=== PATIENT | male | born 1975 | race Caucasian/White ===

== ENCOUNTER 2017-07-30 12:43 | Inpatient (IN) | payer BC, OTHER ==
[~2017-07-30] VITALS: Ht 188 cm; Wt 103.4 kg
[2017-07-31] MEDS ORDERED: MAGNESIUM HYDROXIDE 30 ML LIQUID UDC PO PRN (00:45)
[2017-07-31] MEDS ORDERED: ONDANSETRON ODT 4 MG TAB.RAPDIS SL PRN (00:45)
[2017-07-31] MEDS ORDERED: METHOCARBAMOL 750 MG TABLET PO PRN (00:45)
[2017-07-31] MEDS ORDERED: DICYCLOMINE HCL 20 MG TABLET PO PRN (00:45)
[2017-07-31] MEDS ORDERED: LORAZEPAM 1 MG TABLET PO PRN (00:45)
[2017-07-31] MEDS ORDERED: HYDROXYZINE PAMOATE 25 MG CAPSULE PO PRN (00:45)
[2017-07-31] MEDS ORDERED: diphenhydrAMINE 50 MG CAPSULE PO PRN (00:45)
[2017-07-31] MEDS ORDERED: MIRALAX 17 GM POWD.PACK PO PRN (00:45)
[2017-07-31] MEDS ORDERED: BUPRENORPHINE HCL 2 MG TAB.SUBL SL PRN (00:45)
[2017-07-31] MEDS ORDERED: LOPERAMIDE HCL 2 MG CAPSULE PO PRN ×2 (00:45)
[2017-07-31] MEDS ORDERED: CLONIDINE HCL 0.1 MG TABLET PO PRN (00:45)
[2017-07-31] MEDS ORDERED: ACETAMINOPHEN 325 MG TABLET PO PRN (00:45)
[2017-07-31] MEDS ORDERED: LORAZEPAM 2 MG/1 ML VIAL IM PRN (00:45)
[2017-07-31] MEDS ORDERED: ONDANSETRON 4 MG/2 ML VIAL IM PRN (00:45)
[2017-07-31] MEDS ORDERED: THIAMINE HCL 200 MG/2 ML VIAL IM ONE (00:45)
[2017-07-31] MEDS ORDERED: MAG HYDROX/AL HYDROX/SIMETH 30 ML LIQUID UDC PO PRN (00:45)
--- NOTE | 2017-07-31 01:05 | NUR ---
INTAKE ASSESSMENT BP: 153/87, HR: 90, RR: 18, SpO2: 98% T: 98, Pt denies pain at this time Pt is in stable condition and able to be admitted on the unit. Unit protocols regarding home medications and vital signs every four hours were explained. Pt verbalized understanding. Will continue admission upon arrival on the unit.
--- NOTE | 2017-07-31 01:30 | NUR ---
ADMISSION NOTE COWS:3, CIWA:5 [facility] accompanied by a SUPERVISOR OF COMMUNICATIONS at 0112. Pt is a 42 year old male admitted on 07/31/17 for ETOH and Opiate dependency. Pt is full code with NKA. He reports a PMHx of anxiety, depression, HTN and surgery of bilateral thumbs every 2 years. Last surgery was in May 2017. Pt reports having a PCP by the name of Dr. Marie. He brought in several home medications which have all been reconciled. He denies a history of seizures. He reports his last sobriety was for 40 days 2 years ago. Pt verbalizes that he is here for ETOH and Percocet withdrawal. He describes his current use as: 1.ETOH pint lager daily for 2 years Last dose: 1 beer at 10 pm on 07/30/17 2.Percocet PO 10/325mg 2 tabs every 4-6 hours as prescribed Last dose: 07/30/17 three tabs. He describes his withdrawal symptoms as: "body aches, dizziness, sweats" Upon assessment, pt is alert and oriented x4, anxious, agitated, restless and cooperative. Speech is clear and audible. Heart rate regular. Pt denies chest pain or SOB. PERRLA, breathing even and unlabored. Lung sounds clear. Abdomen is soft and non-distended, bowel sounds present. Last BM (07/30/17 ). Pt reports that BM is regular. Pt's skin is warm, dry and intact. MD aware of pt's admission. Pt oriented to room and unit. Pt safe with bed locked in lowest position, side rails up x2 and call light within reach. Will monitor.
[2017-07-31] MEDS: LORAZEPAM 1 MG TABLET PO PRN ×2 (01:42→08:54)
--- NOTE | 2017-07-31 01:42 | NUR ---
PRN ATIVAN/MAALOX Pt complains of anxiety and agitation. CIWA:5. Pt complains of heart burn. PRN Ativan 1mg and Maalox administered as ordered. Will monitor effectiveness.
[2017-07-31] MEDS ORDERED: MAG HYDROX/AL HYDROX/SIMETH 30 ML LIQUID UDC ONE (01:52)
[2017-07-31] MEDS ORDERED: CETI1TAB PO (01:53)
[2017-07-31] MEDS ORDERED: BUPR150T10 PO (01:53)
[2017-07-31] MEDS ORDERED: BUDE8.43 NS (01:53)
[2017-07-31] MEDS ORDERED: LORAZEPAM 1 MG TABLET ONE (01:53)
[2017-07-31] MEDS ORDERED: LORA10TA7 PO (01:53)
[2017-07-31] MEDS ORDERED: TADA5TAB2 PO (01:53)
[2017-07-31] MEDS ORDERED: CALC-494 PO (01:53)
[2017-07-31] MEDS ORDERED: MECL-102 PO (01:53)
[2017-07-31] MEDS ORDERED: SERT100T PO (01:53)
[2017-07-31] MEDS ORDERED: DERMABOND TP (01:53)
[2017-07-31] MEDS ORDERED: [UNRECOGNIZED DRUG - OTHER] TP (01:53)
[2017-07-31] MEDS ORDERED: IBUP100O18 PO (01:53)
[2017-07-31] MEDS ORDERED: RANI150T12 PO (01:53)
[2017-07-31] MEDS ORDERED: MV-M1TAB21 PO (01:53)
[2017-07-31] MEDS ORDERED: OXYM-46 NS (01:53)
[2017-07-31] MEDS ORDERED: OXYM15MI4 NS (01:53)
[2017-07-31 02:02] LABS: BASOPHILS # (AUTO) 0.1 K/uL (0.0-8.0); BASOPHILS % (AUTO) 1.2 % (0.0-2.0); EOSINOPHILS # (AUTO) 0.3 K/uL (0.0-0.7); EOSINOPHILS % (AUTO) 3.4 % (0.0-7.0); HEMATOCRIT 37.1 % (40-50); HEMOGLOBIN 12.3 G/DL (14.0-18.0); LYMPHOCYTES # (AUTO) 3.3 K/UL (0.8-4.8); LYMPHOCYTES % (AUTO) 34.4 % (20.5-51.5); MEAN CORPUSCULAR HGB CONC 33 g/dL (32.0-37.0); MEAN CORPUSCULAR VOLUME 81.4 FL (82.0-92.0); MONOCYTES % (AUTO) 10.7 % (0.0-11.0); NEUTROPHILS # (AUTO) 4.8 K/UL (1.8-8.9); NEUTROPHILS % (AUTO) 50.3 % (38.5-71.5); PLATELET COUNT (AUTO) 444 K/UL (150-450); RED BLOOD CELL COUNT(AUTO) 4.56 MIL/UL (4.7-6.1); WHITE BLOOD COUNT (AUTO) 9.5 K/UL (4.0-11.2)
--- NOTE | 2017-07-31 02:42 | NUR ---
PRN ATIVAN/MAALOX REASSESSMENT PRN medications effective. Pt lying in bed with eyes closed noted to be asleep. Respirations 16, breathing even and unlabored. Safety measures in place. Will monitor.
[2017-07-31 04:20] VITALS: BP 148/101
[2017-07-31] MEDS ORDERED: CLONIDINE HCL 0.1 MG TABLET ONE (06:04)
--- NOTE | 2017-07-31 06:05 | NUR ---
PRN CLONIDINE Pt with increased BP 148/101, HR:86. PRN Clonidine administered as ordered. Will monitor effectiveness.
[2017-07-31 07:05] VITALS: BP 138/88
--- NOTE | 2017-07-31 07:05 | NUR ---
PRN CLONIDINE REASSESSMENT PRN medication effective. BP: 138/88. Will endorse.
--- NOTE | 2017-07-31 07:23 | NUR ---
END OF SHIFT Pt is a 42 year old male admitted on 07/31/17 for ETOH and Opiate dependency. Pt is full code with NKA. He reports a PMHx of anxiety, depression, HTN and surgery of bilateral thumbs every 2 years. Last surgery was in May 2017. He received PRN Ativan and Maalox. At 0605 he received PRN Clonidine for increased BP. He slept a total of 5 hrs, Intake: 500 mL, Void: x1, BM:0, COWS;3, CIWA:5. Pt remains alert and oriented x4, breathing is even and unlabored. Safety measures in place. Endorsed to oncoming shift.
[2017-07-31 07:39] LABS: *AMPHETAMINE, URINE NEGATIVE (NEGATIVE); *BARBITURATE, URINE NEGATIVE (NEGATIVE); *CANNABINOID, URINE NEGATIVE (NEGATIVE); *COCCAINE, URINE NEGATIVE (NEGATIVE); *OPIATE, URINE POSITIVE (NEGATIVE); *PHENCYCLIDINE SCREEN,URINE NEGATIVE (NEGATIVE)
[2017-07-31 07:41] LABS: THYROID STIMULATING HORMONE 1.396 mIU/mL (0.358-3.740)
[2017-07-31 07:42] LABS: BILIRUBIN,TOTAL 0.5 mg/dL (0.2-1.0); CREATININE 1.3 mg/dL (0.6-1.3); POTASSIUM 3.7 mmol/L (3.5-5.1)
--- NOTE | 2017-07-31 07:58 | NUR ---
START OF SHIFT Pt 42 y/o male admitted for etoh opiates. Pt received in room on bed with eyes closed resting, but easily arousable to name. Pt alert and oriented to name, place, and time. Perrla. Skin warm and slightly moist to touch. Respirations even and unlabored. It was reported that pt slept for 5 hours last night. Bed on lowest position with side rails x 2 up for safety. Call light within reach. No distress noted at this time.
[2017-07-31 08:00] VITALS: BP 141/90
[2017-07-31] MEDS: FOLIC ACID 1 MG TABLET PO SCH (08:53)
[2017-07-31] MEDS: MULTIVITAMINS,THERAPEUTIC TABLET PO SCH (08:53)
[2017-07-31] MEDS: IBUPROFEN 400 MG TABLET PO PRN (08:54)
[2017-07-31] MEDS: THIAMINE HCL 100 MG TABLET PO SCH (08:54)
--- NOTE | 2017-07-31 08:58 | NUR ---
PRN pt with ciwa=8. Anxious and states feels agitated. Ativan 1mg po prn per MD order given and tolerated well.
--- NOTE | 2017-07-31 08:59 | NUR ---
PRN Pt states has muscle aches 6/10 generalized. Robaxin po prn per MD order given and tolerated well.
--- NOTE | 2017-07-31 09:00 | NUR ---
PRN CARLENE Pt observed in room on bed. No distress noted at this time. Pt states pain of bilateral thumbs 2/10, and body aches 2/10.
--- NOTE | 2017-07-31 09:00 | NUR ---
PRN Pt states has bilateral thumb pain 4/1. Motrin po prn per MD order given and tolerated well.
--- NOTE | 2017-07-31 09:58 | NUR ---
PRN EVAL ciwa=4. Pt observed in room on bed. No distress noted at this time.
[2017-07-31] MEDS: LORAZEPAM 1 MG TABLET PO SCH ×3 (12:49→20:46)
[2017-07-31 13:13] VITALS: BP 139/89
[2017-07-31] MEDS: SERTRALINE HCL 100 MG TABLET PO SCH (13:33)
[2017-07-31] MEDS: buPROPion SR 150 MG TABLET.SA PO SCH (13:33)
[2017-07-31 17:27] VITALS: BP 135/85
--- NOTE | 2017-07-31 18:07 | NUR ---
END OF SHIFT Pt 42 y/o male admitted for etoh and opiate. Pt alert and oriented to name, place, and time. Perrla. Skin warm and slightly moist to touch. Respirations even and unlabored. Bilateral hand tremors noted. Pt with periods of anxiety this morning. Pt observed mostly in room throughout the day. Pt was seen by MD today. Pt medication compliant and tolerated well. No ASE noted. Bed on lowest position with side rails x2 up for safety. Call light within reach. No distress noted at this time.
--- NOTE | 2017-07-31 19:15 | NUR ---
Start of Shift Patient is in bed sleeping but is easily aroused to verbal stimuli. Breathing even and non labored. Patient is a 42 year old female admitted on 07/31/17 for Opiate and ETOH Dependence under the care of Dr. Cowan and is currently receiving a 5 day Ativan and 4 day Subutex taper. Patient verbalizes no known allergies, wishes to be full code, following a regular diet, placed on fall and seizure precautions, skin noted intact. Patients past medical history noted as HTN, Anxiety, Depression, and bilateral thumb surgery. Per endorsement, patient was given PRN Ativan prior to starting Ativan taper. All needs attended to promptly. Will endorse to continue plan of care as ordered.
[2017-07-31 20:44] VITALS: BP 150/91
[2017-07-31] MEDS ORDERED: PATIENT MAY USE OWN MED- MD OK PO SCH (21:00)
[2017-08-01 00:20] VITALS: BP 138/84
[2017-08-01 04:15] VITALS: BP 142/89
--- NOTE | 2017-08-01 07:11 | NUR ---
End of Shift Patient is in bed, awake, alert and verbally responsive. Breathing even and non labored. Patient is a 42 year old female admitted on 07/31/17 for Opiate and ETOH Dependence under the care of Dr. Cowan and is currently receiving a 5 day Ativan and will start a 4 day Subutex taper today 08/01/17. No known allergies, Full Code, Regular Diet, placed on fall and seizure precautions, skin noted intact. Patients past medical history noted as HTN, Anxiety, Depression, and bilateral thumb surgery. No PRN Medications administered. Last noted COWS 6 and CIWA 6. All needs attended to promptly. Will endorse to continue plan of care as ordered.
--- NOTE | 2017-08-01 07:40 | NUR ---
START OF SHIFT NOTE 42 year old male admitted on 07/31/17 for Opiate and ETOH Dependence. ON 5 day Ativan and 4 day Subutex taper beginning 08/01/17. No known allergies, Full Code, Regular Diet, placed on fall and seizure precautions. Patients past medical history noted as HTN, Anxiety, Depression, and bilateral thumb surgery. Alert and oriented. No observable sign of withdrawl such as tremors, diaphoresis, chills, confusion, bone/joint/muscle pain. Denies any complaints at this time other than stating left thumb soreness due to thumb surgery 05/2017. Bed in low position, call light in reach, safety measures observed. Will continue to monitor.
[2017-08-01 08:00] VITALS: BP 153/99
[2017-08-01] MEDS ORDERED: TUBERCULIN,PURIF.PROT.DERIV. 5 TU/0.1 ML TEST ID ONE (09:00)
[2017-08-01] MEDS: LISINOPRIL 10 MG TABLET PO SCH (10:00)
[2017-08-01] MEDS: LORAZEPAM 1 MG TABLET PO SCH ×2 (10:09→13:00)
[2017-08-01] MEDS: MULTIVITAMINS,THERAPEUTIC TABLET PO SCH (10:09)
[2017-08-01] MEDS: FOLIC ACID 1 MG TABLET PO SCH (10:09)
[2017-08-01] MEDS: THIAMINE HCL 100 MG TABLET PO SCH (10:10)
[2017-08-01] MEDS: ZANTAC 150MG PO SCH (10:10)
[2017-08-01] MEDS: SERTRALINE HCL 100 MG TABLET PO SCH (10:10)
[2017-08-01] MEDS: BUPRENORPHINE HCL 2 MG TAB.SUBL SL SCH ×2 (10:14→15:14)
[2017-08-01] MEDS: buPROPion SR 150 MG TABLET.SA PO SCH (10:17)
[2017-08-01 11:08] LABS: HEPATITIS B SURFACE AG Negative (Negative)
[2017-08-01 12:00] VITALS: BP 138/93
[2017-08-01 16:30] VITALS: BP 137/89
--- NOTE | 2017-08-01 19:09 | NUR ---
END OF SHIFT REPORT 42 year old male admitted on 07/31/17 for Opiate and ETOH Dependence. MD changed Ativan to 4 day taper and Subutex to 3 day taper. Tapers began 08/01/17. No known allergies, Full Code, Regular Diet, on fall and seizure precautions. Past medical history of HTN, Anxiety, Depression, and bilateral thumb surgery. Tolerating ativan and Subutex tapers as evidenced by the following scores: 0800 COWS/CIWA 6/8, 1200 COWS/CIWA 5/6, 1600 COWS/CIWA 3/6. Appetite fair to good with 50 percent intake at breakfast and lunch and 100 percent at dinner. Intake 2475 cc, void 5, stool x 2. Bed in low position, call light in reach, safety measures observed. Report given to night RN.
[2017-08-01 20:00] VITALS: BP 137/89
--- NOTE | 2017-08-01 20:00 | NUR ---
START OF SHIFT PATIENT WAS JUST IN GROUP. PATIENT ALERT AND ORIENTED X 4. PATIENT REPORTS ANXIETY, SWEATING, NOTED FLUSHED, DENIES ANY PAIN. NO N/V. RECEIVED REPORT FROM DAY SHIFT NURSE. PATIENT IS A 42 YEAR OLD MALE ADMITTED FOR ETOH /OPIATE DEPENDENCE. PATIENT IS ON 4 DAY ATIVAN AND 3 DAY SUBUTEX TAPER. PATIENT IS COMPLIANT WITH MEDICATION AND TREATMENT PLAN. PATIENT DID NOT REQUIRE ANY PRN MEDICATION. LAST COWS 3 AND CIWA 6. SKIN INTACT. PATIENT IS ON FALL/SEIZURE PRECAUTION. SAFETY MEASURES IN PLACE. CALL LIGHT IN REACH. WILL CONTINUE TO MONITOR
[2017-08-01] MEDS ORDERED: LORAZEPAM 1 MG TABLET PO SCH (21:00)
[2017-08-01] MEDS ORDERED: BUPRENORPHINE HCL 2 MG TAB.SUBL SL SCH (21:00)
[2017-08-02] VITALS: BP 109/76
[2017-08-02 04:00] VITALS: BP 127/76
--- NOTE | 2017-08-02 07:07 | NUR ---
END OF SHIFT NOTE PATIENT CONTINUE ON 4 DAY ATIVAN AND 3 DAY SUBUTEX TAPER, TOLERATED WELL, NO ADVERSE REACTION. PATIENT IS COMPLIANT WITH MEDICATION AND TREATMENT PLAN. PATIENT DID NOT REQUIRE ANY PRN MEDICATION. SKIN INTACT. PATIENT IS ON FALL/SEIZURE PRECAUTION. SAFETY MEASURES IN PLACE. CALL LIGHT IN REACH. WILL CONTINUE TO MONITOR. SLEPT 7 HOURS. FLUID INTAKE 2,100 ML. VOIDED X 4. NO BM. LAST COWS 2 AND CIWA 1 .
[2017-08-02 08:00] VITALS: BP 116/84
--- NOTE | 2017-08-02 08:00 | NUR ---
START OF SHIFT NOTE 42 year old male admitted on 07/31/17 for Opiate and ETOH Dependence. ON 4 day Ativan taper on 07/31/17, and 3 day Subutex taper beginning 08/01/17. No known allergies, Full Code, Regular Diet, placed on fall and seizure precautions. Patients past medical history noted as HTN, Anxiety, Depression, and bilateral thumb surgery. Report received from night RN. Pt alert and oriented. No tremors or diaphoresis noted. Denies any complaints at this time. Bed in low position, call light in reach, safety measures observed. Will continue to monitor.
[2017-08-02] MEDS ORDERED: BUPRENORPHINE HCL 2 MG TAB.SUBL SL SCH ×2 (09:00→15:00)
[2017-08-02] MEDS ORDERED: LORAZEPAM 1 MG TABLET PO SCH (09:00)
[2017-08-02] MEDS: buPROPion SR 150 MG TABLET.SA PO SCH (09:49)
[2017-08-02] MEDS: THIAMINE HCL 100 MG TABLET PO SCH (09:49)
[2017-08-02] MEDS: ZANTAC 150MG PO SCH (09:49)
[2017-08-02] MEDS: SERTRALINE HCL 100 MG TABLET PO SCH (09:49)
[2017-08-02] MEDS: LORAZEPAM 1 MG TABLET PO SCH ×2 (09:49→20:24)
[2017-08-02] MEDS: MULTIVITAMINS,THERAPEUTIC TABLET PO SCH (09:50)
[2017-08-02] MEDS: FOLIC ACID 1 MG TABLET PO SCH (09:50)
[2017-08-02] MEDS: LISINOPRIL 10 MG TABLET PO SCH (09:50)
[2017-08-02] MEDS: BUPRENORPHINE HCL 2 MG TAB.SUBL SL SCH ×3 (09:52→20:26)
[2017-08-02 12:00] VITALS: BP 135/88
--- NOTE | 2017-08-02 13:03 | NUR ---
Therapist prompted client about group times. Client stated he will attend all groups.
[2017-08-02 16:00] VITALS: BP 109/77
--- NOTE | 2017-08-02 19:15 | NUR ---
END OF SHIFT NOTE 42 year old male admitted on 07/31/17 for Opiate and ETOH Dependence. ON 4 day Ativan taper on 07/31/17, and 3 day Subutex taper beginning 08/01/17. No known allergies, Full Code, Regular Diet, placed on fall and seizure precautions. Patients past medical history noted as HTN, Anxiety, Depression, and bilateral thumb surgery. Tolerating Ativan and Subutex taper as evidenced by the following COWS/CIWA scores. 0800, COWS 9, CIWA 10. 1200, COWS 3, CIWA 9. 1600, COWS 2, CIWA 2. No PRN medication required this shift. Bed in low position, call light in reach, safety measures observed. Report given to night RN.
[2017-08-02 20:00] VITALS: BP 122/77
--- NOTE | 2017-08-02 20:00 | NUR ---
START OF SHIFT NOTE RECEIVED REPORT FROM DAY SHIFT NURSE. PATIENT IS A 42 YEAR OLD MALE ADMITTED FOR ETOH/OPIATE DEPENDENCE. PATIENT IS ON 4 DAY ATIVAN AND 3 DAY SUBUTEX TAPER. PATIENT GOES TO GROUPS. COMPLIANT WITH MEDS AND TREATMENT PLAN. PATIENT DID NOT REQUIRE ANY PRN MEDICATION. LAST COWS 2 AND CIWA 2. PATIENT IN HIS ROOM. ALERT AND ORIENTED X 4. RESPIRATION EVEN AND UNLABORED. PATIENT REPORTS ANXIETY, FLUSHING , NO N/V/D, AND LEFT THUMB PAIN. PATIENT STATES THAT HE ATTENDED GROUPS, APPETITE [employer] AND HAD BOWEL MOVEMENT. ON FALL/SEIZURE PRECAUTION. SAFETY MEASURES IN PLACE. CALL LIGHT IN REACH. WILL CONTINUE TO MONITOR.
[2017-08-02] MEDS: IBUPROFEN 400 MG TABLET PO PRN (20:36)
--- NOTE | 2017-08-02 23:06 | NUR ---
PRN TRAZADONE ADMINISTRATION PATIENT REQUESTS FOR SLEEP AID. PRN TRAZADONE GIVEN. WILL MONITOR FOR EFFECTIVENESS Addendum: 08/03/17 at 0342 by ANDERSON IRVING LVN ERROR: THIS CHARTING IS FOR ANOTHER PATIENT
--- NOTE | 2017-08-03 | NUR ---
COWS/CIWA /VS PATIENT REFUSED VS. RESPIRATION EVEN AND UNLABORED. RR 14. SAFETY MEASURES IN PLACE. CALL LIGHT IN REACH. WILL CONTINUE TO MONITOR
--- NOTE | 2017-08-03 04:00 | NUR ---
COWS/CIWA /VS PATIENT REFUSED VS. RESPIRATION EVEN AND UNLABORED. RR 15. SAFETY MEASURES IN PLACE. CALL LIGHT IN REACH. WILL CONTINUE TO MONITOR
--- NOTE | 2017-08-03 07:13 | NUR ---
END OF SHIFT NOTE PATIENT IS A 42 YEAR OLD MALE ADMITTED FOR ETOH/OPIATE DEPENDENCE. PATIENT IS ON 4 DAY ATIVAN AND 3 DAY SUBUTEX TAPER, TOLERATED WELL. PATIENT GOES TO GROUPS. COMPLIANT WITH MEDS AND TREATMENT PLAN. PATIENT REPORTED ANXIETY, FLUSHING , NO N/V/D, AND LEFT THUMB PAIN. PATIENT STATES THAT HE ATTENDED GROUPS, APETITE GOOD AND HAD BOWEL MOVEMENT. PATIENT DID NOT REQUIRE ANY PRN MEDICATION. PATIENT REMAIN FREE OF INJURY. ON FALL/SEIZURE PRECAUTION. SAFETY MEASURES IN PLACE. CALL LIGHT IN REACH. WILL CONTINUE TO MONITOR. SLEPT 7 HOURS. FLUID INTAKE 473 ML. VOIDED X 2. NO BM. LAST COWS 5 AND CIWA 3.
--- NOTE | 2017-08-03 07:35 | NUR ---
START OF SHIFT Pt is a 42 yr old male, AA&Ox4. Pt was admitted on 07/31/17 for ETOH/Opiate dependence and is on Ativan and Subutex taper as ordered. Medication deon well. Received report from night auditor nurse. Pt slept for 7 hrs. No PRN's were given during the night. Last COWS score was 5 and CIWA score was 3 and 2000. Pt is c/o anxiety this morning but is able to cope with anxiety level. Skin is intact, warm and dry to touch. No tremors seen or felt. Pt denies any n/v. Safety precautions observed. Call light is within reach. Will continue to monitor.
[2017-08-03 08:00] VITALS: BP 132/73
[2017-08-03] MEDS ORDERED: LORAZEPAM 1 MG TABLET PO SCH ×2 (09:00)
[2017-08-03] MEDS ORDERED: SERTRALINE HCL 100 MG TABLET PO SCH (09:00)
[2017-08-03] MEDS ORDERED: BUPRENORPHINE HCL 2 MG TAB.SUBL SL SCH ×2 (09:00)
[2017-08-03] MEDS ORDERED: buPROPion SR 150 MG TABLET.SA PO SCH (09:00)
[2017-08-03] MEDS: FOLIC ACID 1 MG TABLET PO SCH (09:11)
[2017-08-03] MEDS: SERTRALINE HCL 50 MG TABLET PO SCH (09:12)
[2017-08-03] MEDS: buPROPion XL 150 MG TAB.SR.24H PO SCH (09:12)
[2017-08-03] MEDS: LISINOPRIL 10 MG TABLET PO SCH (09:12)
[2017-08-03] MEDS: THIAMINE HCL 100 MG TABLET PO SCH (09:12)
[2017-08-03] MEDS: MULTIVITAMINS,THERAPEUTIC TABLET PO SCH (09:12)
[2017-08-03] MEDS: ZANTAC 150MG PO SCH (09:18)
[2017-08-03] MEDS ORDERED: IBUP-1953 PO (11:19)
[2017-08-03] MEDS ORDERED: BUPR-96 PO (11:19)
[2017-08-03] MEDS ORDERED: DIPH50CA37 PO (11:19)
[2017-08-03] MEDS ORDERED: SERT50TA12 PO (11:19)
[2017-08-03] MEDS ORDERED: LISI10TA5 PO (11:19)
[2017-08-03] MEDS ORDERED: HYDR-3895 PO (11:19)
[2017-08-03] MEDS ORDERED: METH-406 PO (11:19)
[2017-08-03 12:00] VITALS: BP 143/83
[2017-08-03] MEDS: IBUPROFEN 400 MG TABLET PO PRN (15:25)
[2017-08-03 16:00] VITALS: BP 138/86
--- NOTE | 2017-08-03 19:07 | NUR ---
END OF SHIFT Pt is a 42 yr old male, AA&Ox4. Pt was admitted on 07/31/17 for ETOH/Opiate dependence and has completed Ativan and Subutex taper. Medication deon well. Pt has been cooperative with care and attended group sessions. Pt received Motrin PRN for headache. Medication was effective. Last COWS score was 5 and CIWA score was 5 at 1600. Pt si to be discharged tomorrow on 08/04/17. Pt is observed with anxiety m/b difficulty staying still. Skin is intact, warm and moist to touch. No tremors seen or felt. Pt denies any n/v. Safety precautions observed. Call light is within reach.
[2017-08-03 20:00] VITALS: BP 103/61
--- NOTE | 2017-08-03 20:00 | NUR ---
START OF SHIFT NOTE RECEIVED REPORT FROM DAY SHIFT NURSE. PATIENT COMPLETED 4 DAY SUBUTEX AND 3 DAY ATIVAN TAPER. PATIENT IS MEDICALLY CLEARED TO BE DISCHARGE TOMORROW. PATIENT WAS ANXIOUS DURING THE DAY. PATIENT C/O HEADACHE. PRN MOTRIN WAS GIVEN. LAST COWS 5 AND CIWA 5. PATIENT IN HIS ROOM , ALERT AND ORIENTED X 4. RESPIRATION EVEN AND UNLABORED. PATIENT STATES HE'S ALRIGHT AND HE'S LEAVING TOMORROW. NO N/V. DENIES ANY PAIN. PATIENT ON FALL/SEIZURE PRECAUTION. SAFETY MEASURES IN PLACE. CALL LIGHT IN REACH. WILL CONTINUE TO MONITOR
--- NOTE | 2017-08-03 22:25 | NUR ---
PRN TRAZADONE ADMINISTRATION PATIENT REQUESTS FOR SLEEP AID. PRN TRAZADONE GIVEN. WILL MONITOR FOR EFFECTIVENESS Addendum: 08/03/17 at 2340 by ANDERSON IRVING LVN ERROR: THE CHARTING IS FOR ANOTHER PATIENT
--- NOTE | 2017-08-04 | NUR ---
CIWA/COWS /VS PATIENT REFUSED VS. COWS/CIWA UNABLE TO ASSESS. RESPIRATION EVEN AND UNLABORED. RR 14. SAFETY MEASURES IN PLACE. CALL LIGHT IN REACH. WILL CONTINUE TO MONITOR.
--- NOTE | 2017-08-04 07:01 | NUR ---
END OF SHIFT NOTE PATIENT COMPLETED 4 DAY SUBUTEX AND 3 DAY ATIVAN TAPER, TOLERATED WELL. NO ADVERSE REACTION . PATIENT IS MEDICALLY CLEARED TO BE DISCHARGE TODAY. PATIENT DID NOT REQUIRE ANY PRN MEDICATION AND TREATMENT PLAN. PATIENT DID NOT REQUIRE ANY PRN MEDICATION. ON FALL/SEIZURE PRECAUTION. SAFETY MEASURES IN PLACE. CALL LIGHT IN REACH. WILL CONTINUE TO MONITOR . SLEPT 5 HOURS. FLUID INTAKE 930 ML. VOIDED X 2 . BM X 1. LAST COWS 1 AND CIWA 0.
--- NOTE | 2017-08-04 07:20 | NUR ---
Start of Shift Toy Maker received report on 42 year old male admitted on 07/31/17 for ETOH and Percocet detoxification. Pt reports NKA, full code and a regular diet. Reports PMH of HTN, anxiety , depression and bilateral thumb surgery. Pt has completed his Ativan and Subutex taper in preparation of todays discharge. Last COWS 1 and CIWA 0 at 0400. Toy Maker encounters pt resting in bed with eyes closed. Respirations even and unlabored with rise and fall of chest noted. Bed in low position with wheels locked, side rails up x2 and call light within reach. Will continue to monitor, support and encourage according to plan of care.
[2017-08-04 08:38] VITALS: BP 147/94
[2017-08-04 08:48] VITALS: BP 147/94
[2017-08-04] MEDS: FOLIC ACID 1 MG TABLET PO SCH (08:48)
[2017-08-04] MEDS: ZANTAC 150MG PO SCH (08:48)
[2017-08-04] MEDS: LISINOPRIL 10 MG TABLET PO SCH (08:48)
[2017-08-04] MEDS: MULTIVITAMINS,THERAPEUTIC TABLET PO SCH (08:48)
[2017-08-04] MEDS: THIAMINE HCL 100 MG TABLET PO SCH (08:49)
[2017-08-04] MEDS: SERTRALINE HCL 50 MG TABLET PO SCH (08:49)
[2017-08-04] MEDS: buPROPion XL 150 MG TAB.SR.24H PO SCH (08:49)
[2017-08-04] MEDS ORDERED: BUPRENORPHINE HCL 2 MG TAB.SUBL SL SCH (09:00)
[2017-08-04] MEDS ORDERED: LORAZEPAM 1 MG TABLET PO SCH (09:00)
--- NOTE | 2017-08-04 09:28 | NUR ---
Discharge Note Pt is discharged per ambulation to awaiting private transportation. Pt is in stable condition with VS WNL. Pt denies HI/SI, A/VH or any associated psychiatric symptoms. Pt is A/O x4, calm, cooperative, pleasant and able to make needs known. Clear thought process and speech. Pt educated on discharge education including medication and signs and symptoms to seek additional professional help. Pt provided education on medication, including indication, route, dosage and timing. Pt provided with medication prescriptions. Pt denies any further comments, questions or concerns related to discharge education. Pt signed all necessary discharge paperwork, personal belongings signed for and returned. Home medications signed for and returned. MD made aware of pt's departure.
== END 2017-08-04 09:28 | disposition other institution (70) | DRG 895 ==
LOC: SRC 07-31 00:11
PROVIDERS: ADMIT Internal Medicine; ATTEND Internal Medicine
PROC: HZ2ZZZZ Detoxification Services for Substance Abuse Treatment (ICD-10-PCS; principal; 2017-07-31)
PROC: HZ41ZZZ Group Counseling for Substance Abuse Treatment, Behavioral (ICD-10-PCS; 2017-08-01)
PROC: HZ31ZZZ Individual Counseling for Substance Abuse Treatment, Behavioral (ICD-10-PCS; 2017-08-02)
DX: F10.230 Alcohol dependence with withdrawal, uncomplicated (principal); F33.2 Major depressive disorder, recurrent severe without psychotic features; I15.9 Secondary hypertension, unspecified; F11.23 Opioid dependence with withdrawal; Y90.9 Presence of alcohol in blood, level not specified; F41.9 Anxiety disorder, unspecified; K21.9 Gastro-esophageal reflux disease without esophagitis; J30.2 Other seasonal allergic rhinitis; Z79.899 Other long term (current) drug therapy; Z90.81 Acquired absence of spleen; Z81.1 Family history of alcohol abuse and dependence; Z82.49 Family history of ischemic heart disease and other diseases of the circulatory system; Z81.3 Family history of other psychoactive substance abuse and dependence; Z81.8 Family history of other mental and behavioral disorders; D50.9 Iron deficiency anemia, unspecified
CPT/HCPCS: 36415; 70030-TC; 80307; 80361; 83690; 83735; 84443; 85025; 86580; 86592; 86705; 86803; 87340; 87806; A4663; G0480